=== PATIENT | female | born 1935 | race Caucasian/White ===

== ENCOUNTER 2017-08-25 09:30 | Outpatient (CLI) | payer MEDICARE | END 2017-08-25 09:31 | disposition home or self-care (01) | LOC: BICMAMMO 09:30 | PROVIDERS: ATTEND Internal Medicine Hematology & Oncology | DX: M85.80 Other specified disorders of bone density and structure, unspecified site (principal); N95.9 Unspecified menopausal and perimenopausal disorder; M81.0 Age-related osteoporosis without current pathological fracture; Z85.3 Personal history of malignant neoplasm of breast | CPT/HCPCS: 77080 ==

== ENCOUNTER 2017-12-15 10:13 | Outpatient (CLI) | payer MEDICARE | END 2017-12-15 10:14 | disposition home or self-care (01) | LOC: BICMAMMO 10:13 | PROVIDERS: ATTEND Internal Medicine Hematology & Oncology | DX: C50.919 Malignant neoplasm of unspecified site of unspecified female breast (principal); M81.8 Other osteoporosis without current pathological fracture | CPT/HCPCS: 77066; G0279 ==

== ENCOUNTER 2018-04-08 10:04 | Outpatient (CLI) | payer MEDICARE ==
--- NOTE | 2018-04-08 13:46 | CT ---
NONCONTRAST CT CERVICAL SPINE: DATE: 04/08/2018. HISTORY: Cervical radiculopathy. The patient complains of left-sided neck pain. COMPARISON: None available. FINDINGS: Multilevel degenerative change is seen in the cervical spine. No fracture or subluxation is present. There is a lucent lesion seen within the odontoid likely related to large subchondral cyst changes se condary to prominent degenerative changes at the articulation of the odontoid with the anterior arch of C1. There is loss of intervertebral disk height with disk-osteophyte complexes present at the C3-4, C4-5, C5-6, and C6-7 levels. There is moderate to severe right-sided neural foraminal narrowing at the C3-4 level primarily relate d to prominent uncinate process hypertrophy and facet hypertrophic changes. There is moderate to sev ere left and mild right-sided neural foraminal narrowing at the C4-5 level, mild bilateral neural for aminal narrowing at C5-6 and C6-7 levels related to disk-osteophyte complexes and uncinate process hy pertrophy. Facet degenerative changes are also present at these levels. Prevertebral soft tissues are within normal limits. Prominent vascular calcifications are seen in the region of the carotid artery bifurcations and proxi mal internal carotid arteries as well as in the distal vertebral arteries. There is biapical pleural and parenchymal scarring asymmetrically greater on the right with the area of scarring on the right partially calcified. There is incomplete visualization of a parenchymal irregular opacity within the left upper lobe. Thi s could also be related to chronic lung changes, but there are no prior studies available for compari son and this is also incompletely imaged. Infectious process or neoplastic process could not be enti rely excluded and CT thorax is recommended for further evaluation. IMPRESSION: 1. Biapical pleural and parenchymal scarring partially calcified and asymmetrically greater on the r ight. In addition, there is an irregular patchy and linear parenchymal opacity with surrounding grou nd-glass density in the left upper lobe incompletely imaged or evaluated. This could be related to c hronic lung changes as well, although a focal area of pneumonitis/pneumonia or a neoplastic process c annot be excluded. CT thorax is recommended for further evaluation. 2. Multilevel degenerative changes seen throughout the cervical spine. No fracture or subluxation i s seen. CODE T POS: [facility]
== END 2018-04-08 10:05 | disposition home or self-care (01) ==
LOC: TBSIIMAG 10:04
PROVIDERS: ATTEND Neurological Surgery
DX: M47.22 Other spondylosis with radiculopathy, cervical region (principal); J98.4 Other disorders of lung; R91.8 Other nonspecific abnormal finding of lung field; J94.8 Other specified pleural conditions
CPT/HCPCS: 72125

== ENCOUNTER 2019-01-09 13:27 | Outpatient (CLI) | payer MEDICARE ==
--- NOTE | 2019-01-09 14:48 | MRI ---
MRI BRAIN NONCONTRAST: Date: 01/09/19 CLINICAL INDICATION: Memory loss. FINDINGS: There is no acute territorial infarction, intracranial mass effect, or midline shift. Age-related par enchymal volume loss with compensatory dilatation of the ventricular system is present. There is mode rate chronic microvascular ischemic disease of the cerebral white matter, and there is pontine gliosi s, as well. No intracranial hemorrhagic susceptibility. Small remote lacunar infarction involves left cerebellar hemisphere. [place] right intraocular lens is absent. There is a small retention cyst in t he medial right maxillary sinus. IMPRESSION: 1. No acute territorial infarction or mass effect. 2. Moderate chronic microvascular ischemic disease and pontine gliosis. 3. Remote lacunar infarction of left cerebellar hemisphere. POS: C
== END 2019-01-09 13:28 | disposition home or self-care (01) ==
LOC: BICMRI 13:27
PROVIDERS: ATTEND Family Medicine
DX: R41.3 Other amnesia (principal); I67.82 Cerebral ischemia; G93.89 Other specified disorders of brain
CPT/HCPCS: 70551

== ENCOUNTER 2019-12-20 10:43 | Outpatient (CLI) | payer MEDICARE ==
--- NOTE | 2019-12-20 14:50 | MMO ---
Bilateral MAMMO Bilat Screen [facility]. CLINICAL HISTORY: Patient is 84 years old and is seen for screening. The patient has the following family history of breast cancer: sister, malignant (generic). The patient has a history of Excisional biopsy procedure revealed invasive ductal right breast carcinoma in December, and malignant (generic) in the right breast in December,. The patient has a history of right Lumpectomy in December, - malignant. VIEWS: The views performed were: bilateral craniocaudal with tomosynthesis and bilateral mediolateral oblique with tomosynthesis. FILMS COMPARED: The present examination has been compared to prior imaging studies performed at [facility] on 11/26/2015, 11/27/2016, 12/15/2017 and 12/16/2018. This study has been interpreted with the assistance of computer-aided detection. MAMMOGRAM FINDINGS: There are scattered fibroglandular densities. Benign calcifications are noted bilaterally. There are no suspicious masses, suspicious calcifications, or new areas of architectural distortion. IMPRESSION: THERE IS NO MAMMOGRAPHIC EVIDENCE OF MALIGNANCY. A ROUTINE FOLLOW-UP MAMMOGRAM IN 1 YEAR IS RECOMMENDED. THE RESULTS OF THIS EXAM WERE SENT TO THE PATIENT. ACR BI-RADS Category 2 - Benign finding MAMMOGRAPHY NOTE: 1. A negative mammogram report should not delay a biopsy if a dominant of clinically suspicious mass is present. 2. Approximately 10% to 15% of breast cancers are not detected by mammography. 3. Adenosis and dense breasts may obscure an underlying neoplasm. Reported by: RUSSELL CHEW MD Electonically Signed: [id number]
== END 2019-12-20 10:44 | disposition home or self-care (01) ==
LOC: BICMAMMO 10:43
PROVIDERS: ATTEND Internal Medicine Hematology & Oncology
DX: Z12.31 Encounter for screening mammogram for malignant neoplasm of breast (principal); Z80.3 Family history of malignant neoplasm of breast; Z91.89 Other specified personal risk factors, not elsewhere classified; Z98.890 Other specified postprocedural states
CPT/HCPCS: 77063; 77067

== ENCOUNTER 2020-03-24 15:57 | Inpatient (IN) | payer MEDICARE ==
[~2020-03-24 15:57] MED LIST: Iopamidol-370 76% 500 ML 1 ML ONE
[2020-03-24 17:13] LABS: #Eosinphils 0.1 thou/uL (0.0-0.7); #Lymphocytes 1.5 thou/uL (1.20-3.40); #Monocytes 0.8 thou/uL (0.11-0.59); #Neutrophils 7.4 thou/uL (1.40-6.50); %Basophils 0.3 % (0.0-1.0); %Eosinophils 0.9 % (0.0-10.0); %Lymphocytes 15.3 % (21.0-51.0); %Monocytes 7.9 % (0.0-10.0); %Neutrophils 75.6 % (42.0-75.0); Hemoglobin 13.9 g/dL (12.0-16.0); Mean Corpuscular HGB CONC 33.4 g/dL (32.0-36.0); Mean Corpuscular Hemoglobin 32.5 pg (27.0-31.0); Mean Corpuscular Volume 97.3 fL (78.0-98.0); Mean Platelet Volume 9.2 fL (7.4-10.4); Platelet Count 222 thou/uL (130-400); RBC Distribution Width 11.9 % (11.5-14.5); Red Blood Cell (RBC) Count 4.28 mill/uL (4.20-5.40); White Blood Cell (WBC) Count 9.8 thou/uL (4.8-10.8)
[2020-03-24 17:35] LABS: ALT (SGPT) 11 U/L (8-55); AST (SGOT) 18 U/L (5-34); Albumin 3.9 g/dL (3.4-4.8); Alkaline Phosphatase 52 U/L (40-110); Anion Gap 14 mmol/L (10-20); BUN (Urea Nitrogen) 30 mg/dL (9.8-20.1); Bilirubin, Total 0.5 mg/dL (0.2-1.2); Calc. Creatinine Clearance 0 mL/min (70-130); Calcium 9.1 mg/dL (7.8-10.44); Carbon Dioxide 24 mmol/L (23-31); Chloride 104 mmol/L (98-107); Estimated GFR-MDRD 47; Globulin 2.8 g/dL (2.4-3.5); Glucose 120 mg/dL (83-110); Lipase 27 U/L (8-78); Potassium 4.2 mmol/L (3.5-5.1); Protein, Total 6.7 g/dL (6.0-8.3); Sodium 138 mmol/L (136-145)
[2020-03-24] MEDS ORDERED: Morphine 4 MG/ML VIAL ONE (17:36)
[2020-03-24] MEDS ORDERED: Ondansetron PF 4 MG/2 ML Vial ONE (17:36)
--- NOTE | 2020-03-24 18:32 | CT ---
CT Abdomen Pelvis W Con History: Abdominal pain with nausea and vomiting Comparison: None. Findings: Lung bases are clear. No pericardial effusion. Dense mitral annular calcifications. Small h iatal hernia. Large abdominal aortic aneurysm which is bilobed and partially thrombosed. The aneurysm measures up t o 3.6 cm with a craniocaudal length of 8 cm. There is a narrow patent lumen between the two aneurysms which measures 9 mm. Aneurysm originates just below the renal arteries. There are dilated l oops of distal jejunum and proximal ileum which measures up to 3.5 cm. The distal ileum and terminal ileum is not dilated. There is a transition point of dilated ileum to normal ilium of the ri ght lower quadrant of the abdomen axial image 57 adjacent to a loculated peritoneal fluid collection which measures up to 10 cm in size. There is either a separate left peritoneal fluid colle ction measuring up to 8.8 cm in size versus continuations collection posteriorly, although the streak artifact from right hip arthroplasty does limit this evaluation. These collections appears sep arate from the urinary bladder. The liver, gallbladder, spleen are unremarkable as well as the adrenal glands. Multiple hypodensities of both kidneys likely cysts. No hydronephrosis. No acute osseous abnormality. No suspicious osteolytic or osteoblastic lesions. Mild pancreatic atrophy with dilatation of the main pancreatic duct. Liver is unremarkable. Impression: 1. Mildly dilated loops of small bowel involving the distal jejunum and proximal ileum to the right l ower quadrant of the abdomen adjacent to a large was felt to be peritoneal inclusion cyst which creates mass effect upon the nondilated bowel. Small bowel follow-through may be beneficial. 2. Bilobed aortic aneurysm with what appeared to be two separate aneurysms with a small connection be tween the two. This connection is a narrow lumen of 9 mm for which both in combination have a length of 8.5 cm and a width measuring up to 3.6 cm. Evaluation for aneurysm repair is recommended. 3. Likely large bilateral peritoneal inclusion cysts for which nonemergent pelvic ultrasound can be p erformed.
[2020-03-24 20:18] LABS: Bacteria/HPF None Seen HPF (None Seen); Bilirubin Negative (Negative); Blood, Urine Trace (Negative); Clarity Clear (Clear); Glucose, Urine (Dipstick) Normal (Negative); Ketone, Urine Negative (Negative); Leukocyte Negative Leu/uL (Negative); Nitrite Negative (Negative); Protein, Urine (Dipstick) Negative (Neg-Trace); Squamous Epithelial 0-3 HPF (0-3); Urobilinogen Normal mg/dL (Less than 2); pH, Urine 6.5 (5.0-9.0)
[2020-03-24] MEDS ORDERED: hydrALAZINE 20 MG/ML VIAL ONE (20:22)
[2020-03-24] MEDS ORDERED: Benzocaine 20% Spray 60 ML CAN ONE (20:34)
[2020-03-24] MEDS ORDERED: Oxymetazoline HCl 0.05% (30 ML BOT) ONE (20:34)
[2020-03-24] MEDS ORDERED: Ondansetron PF 4 MG/2 ML Vial IVP PRN (22:03)
[2020-03-24] MEDS ORDERED: Morphine 2 MG/ML VIAL SLOW IVP PRN (22:05)
[2020-03-24] MEDS ORDERED: Metoprolol Tartrate 5 MG/5 ML VIAL IVP PRN (22:06)
[2020-03-24] MEDS ORDERED: diphenhydrAMINE 25 MG CAP PO PRN (22:07)
[2020-03-24] MEDS: Dextrose 5 % And 0.9 % NaCl 1,000 ML IV SCH (22:35)
--- NOTE | 2020-03-24 22:39 | HP ---
REASON FOR ADMISSION: Abdominal pain. HISTORY OF PRESENT ILLNESS: This is an 85-year-old female patient, presenting to the ER for vomiting and abdominal pain, this has been going back to approximately 20 hours before her presentation. Around midnight, she developed a watery diarrhea, last episode of diarrhea was 9 a.m. this morning. With diarrhea, she had nausea and vomiting. She denies fevers. Denies chills. She does report abdominal pain that is mild in intensity, cramping in nature, involving the whole abdomen, but mainly localized in the left part and left lower quadrant area. Since the morning, she has not moved her bowels, and she is not passing gas. The patient has dementia, lives with her son. At the bedside, she does have her daughter who was providing with most of the information. PAST MEDICAL HISTORY: 1. Dementia. 2. Breast cancer, status post lumpectomy, on tamoxifen. 3. Coronary artery disease, status post CABG. 4. Colon resection. 5. High blood pressure. 6. High cholesterol. 7. Partial hysterectomy. SOCIAL HISTORY: She does not smoke. Does not drink alcohol. FAMILY HISTORY: Negative for premature coronary artery disease. ALLERGY: She does have sensitivity to a certain statin. Daughter does not remember the name. PHYSICAL EXAMINATION: GENERAL: She is awake, but confused. Does not appear in distress. VITAL SIGNS: Her blood pressure is 177/81, heart rate of 88, temperature is 98.6, and saturating 96% on room air. HEENT: Head is nontraumatic, normocephalic. Pupils equal, reactive. Extraocular movements are intact. Nonicteric sclerae. Well injected conjunctivae. Oral mucosa normal. Nasal mucosa normal. NECK: Supple. No adenopathy. No murmur. Thyroid is not palpable. Trachea is midline. No supraclavicular lymphadenopathy. CARDIOVASCULAR: S1, S2 regular. Loud systolic murmur is heard. No displacement of PMI. LUNGS: Fine inspiratory crackles bilaterally. Bowel sounds were increased and hyperactive. ABDOMEN: Soft, but slightly tender on palpation of the left lower quadrant area. EXTREMITIES: No lower extremity edema. No cyanosis. NEUROLOGIC: Cranial nerves 2 through 12 within normal limits. Normal motor function and sensory function. No reflexes. LABORATORY DATA: Blood work shows WBC 9.8, hemoglobin of 13.9, and platelets of 222. Sodium 138, potassium 4.2, bicarb of 24, creatinine of 1.1, and BUN of 30. Urinalysis shows 4 to 6 wbc's and 4 to 6 rbc's, negative nitrites, negative leukocyte esterase. CT of the abdomen and pelvis shows mildly dilated loops of small bowel involving the distal jejunum and proximal ileum to the right lower quadrant of the abdomen, adjacent to a large peritoneal inclusion cyst, which creates mass effect up on the nondilated bowel. Small bowel follow-through may be beneficial. Bilobed aortic aneurysm which what appeared to be 2 separate aneurysms with a small connection between the 2. This connection is a narrow lumen of 9 mm for which both of combination have a length of 8.5 cm and width of 3.6 cm. Evaluation for aneurysm repair was recommended. Likely, a large bilateral peritoneal inclusion cyst for which nonemergent pelvic ultrasound can be performed. ASSESSMENT AND PLAN: This is an 85-year-old female patient who is presenting with abdominal pain, vomiting, and diarrhea. CT scan, possible bowel obstruction and multiple intraabdominal finding also incidentally an aortic aneurysm. GI: The patient will be kept n.p.o. We will provide her with pain control, provide her with IV fluids. I will place a consultation for General Surgery to give us their input. The patient would be on aspiration precautions. For her high blood pressure, we will provide the blood pressure control. For DVT prophylaxis, should be on Lovenox subcutaneously. For her aortic aneurysm., the ER doctor did contact Dr. Gonzalez of Vascular Surgery recommendation as an outpatient followup. No need for urgent or emergent intervention. Her daughter requested for me to give her something for her to sleep and calm her down. We will have IV Benadryl on as needed basis for insomnia. The patient is a do not resuscitate as per her daughter, who is the [id number] attorney recruiter. Job ID: [id number]
[2020-03-25 05:47] LABS: #Eosinphils 0.1 thou/uL (0.0-0.7); #Lymphocytes 1.6 thou/uL (1.20-3.40); #Monocytes 0.9 thou/uL (0.11-0.59); %Basophils 0.6 % (0.0-1.0); %Eosinophils 1.6 % (0.0-10.0); %Lymphocytes 21.3 % (21.0-51.0); %Monocytes 11.8 % (0.0-10.0); %Neutrophils 64.8 % (42.0-75.0); Hemoglobin 12.6 g/dL (12.0-16.0); Mean Corpuscular HGB CONC 33.4 g/dL (32.0-36.0); Mean Corpuscular Hemoglobin 32.4 pg (27.0-31.0); Mean Corpuscular Volume 97.3 fL (78.0-98.0); Mean Platelet Volume 9.7 fL (7.4-10.4); Platelet Count 205 thou/uL (130-400); RBC Distribution Width 11.9 % (11.5-14.5); Red Blood Cell (RBC) Count 3.89 mill/uL (4.20-5.40); White Blood Cell (WBC) Count 7.7 thou/uL (4.8-10.8)
[2020-03-25 06:08] LABS: Anion Gap 13 mmol/L (10-20); BUN (Urea Nitrogen) 24 mg/dL (9.8-20.1); Calc. Creatinine Clearance 0 mL/min (70-130); Calcium 8.2 mg/dL (7.8-10.44); Carbon Dioxide 22 mmol/L (23-31); Chloride 108 mmol/L (98-107); Estimated GFR-MDRD 47; Glucose 123 mg/dL (83-110); Sodium 139 mmol/L (136-145)
[2020-03-25] MEDS: Enoxaparin Sodium 40 MG/0.4 ML SYRINGE SC SCH (08:02)
[2020-03-25] MEDS ORDERED: MD-Gastroview 120 ML BOT ONE (10:50)
--- NOTE | 2020-03-25 12:30 | RAD ---
XR Small Bowel STANDARD History: Abdominal pain Comparison: CT examination prior day Findings: Gastrografin contrast was given to the patient. Contrast transits through the the stomach i nto the small bowel with entrance into the ascending and transverse colon within 1.5 hours. Impression: No high-grade small bowel obstruction.
[2020-03-25] MEDS: Dextrose 5 % And 0.9 % NaCl 1,000 ML IV SCH (12:53)
[2020-03-25 12:59] VITALS: BMI 20.8
--- NOTE | 2020-03-25 15:17 | PDOC.HOSPP ---
- Subjective Encounter Date: 03/25/20 Encounter Time: 15:15 Subjective: f/u for abd pain/N/V with initial concern for possible SBO by CT imaging but SBFT negative this am. - Objective Vital Signs & Weight: Vital Signs (12 hours) Temp Pulse Resp BP Pulse Ox 03/25/20 08:00 95 03/25/20 07:11 98.8 F 74 18 136/70 95 03/25/20 04:25 98.7 F 76 18 147/71 H 93 L Weight Weight 129 lb 4.8 oz Result Diagrams: 03/25/20 05:10 03/25/20 05:10 Radiology Reviewed by me: Yes (SBFT - no obstruction) Hospitalist ROS - Medication Medications: Active Medications Generic Name Dose Route Start Last Admin Trade Name Freq PRN Reason Stop Dose Admin Enoxaparin Sodium 40 mg 03/25/20 09:00 03/25/20 08:02 Enoxaparin Sodium 40 Mg/0.4 Ml Syringe SC Not Given 0900 GABRIELE Dextrose/Sodium Chloride 1,000 mls @ 75 mls/hr 03/24/20 22:15 03/25/20 12:53 D5 0.9% Ns IV 1,000 mls .[id number] GABRIELE Administration Ondansetron HCl 4 mg 03/24/20 22:03 03/25/20 09:30 Ondansetron Pf 4 Mg/2 Ml Vial IVP 4 mg Q6H PRN Administration Nausea/Vomiting - Exam General Appearance: NAD, awake alert Eye: PERRL, anicteric sclera ENT: normocephalic atraumatic, no oropharyngeal lesions Neck: supple, symmetric, no JVD, no thyromegaly, no lymphadenopathy Heart: RRR, no gallops, no rubs, normal peripheral pulses Heart - other findings: S1, S2 Respiratory: CTAB, no wheezes, no rales, no ronchi, normal chest expansion Gastrointestinal: soft, non-tender, non-distended, normal bowel sounds, no palpable masses Extremities: no cyanosis, no clubbing, no edema Skin: normal turgor, no lesions Neurological: cranial nerve grossly intact, no new deficit Musculoskeletal: normal tone, normal strength Psychiatric: normal affect, A&O x 3 Hosp A/P (1) Abdominal pain Code(s): R10.9 - UNSPECIFIED ABDOMINAL PAIN Status: Acute Plan: Likely viral gastroenteritis, supportive mgmt (2) Nausea & vomiting Code(s): R11.2 - NAUSEA WITH VOMITING, UNSPECIFIED Status: Acute Plan: Resolved, advance diet as tolerated, PRN Zofran (3) CKD (chronic kidney disease), stage III Code(s): N18.3 - CHRONIC KIDNEY DISEASE, STAGE 3 (MODERATE) Status: Chronic Plan: Avoid nephrotoxic meds and limit contrast exposure (4) HTN (hypertension) Code(s): I10 - ESSENTIAL (PRIMARY) HYPERTENSION Status: Chronic Qualifiers: Hypertension type: essential hypertension Qualified Code(s): I10 - Essential (primary) hypertension (5) Dementia Code(s): F03.90 - UNSPECIFIED DEMENTIA WITHOUT BEHAVIORAL DISTURBANCE Status: Chronic Plan: Mild, supportive mgmt with family at bedside - Plan plan discussed w/ family, social media content manager, out of bed/ambulate, DVT proph w/SCDs Stable overall Continue low-volume IVF's OOB/ambulate ADAT Likely home in am
--- NOTE | 2020-03-25 16:45 | PDOC.FMACP ---
Advance Care Planning - Problem (1) CKD (chronic kidney disease), stage III Status: Chronic Code(s): N18.3 - CHRONIC KIDNEY DISEASE, STAGE 3 (MODERATE) (2) Abdominal pain Status: Acute Code(s): R10.9 - UNSPECIFIED ABDOMINAL PAIN (3) HTN (hypertension) Status: Chronic Code(s): I10 - ESSENTIAL (PRIMARY) HYPERTENSION Qualifiers: Hypertension type: essential hypertension Qualified Code(s): I10 - Essential (primary) hypertension - Note Participants: patient, family, palliative care Summary: Palliative Care introduced Advanced Care Planning, opportunity to decline. The diagnosis, prognosis and goals of care were discussed. Appropriate forms and documentation to accomplish the goals of care were discussed. All questions were answered. Elected to complete MPOA and Directive to physician. Original and copy given to patient, copies placed on chart for medical records. Time Spent (mins): 20
--- NOTE | 2020-03-25 21:08 | CON ---
DATE OF CONSULTATION: 03/25/2020 HISTORY OF PRESENT ILLNESS: Ms. Hall is an 85-year-old woman, who was admitted yesterday with insidious onset, mild generalized abdominal pain associated with multiple episodes of nausea and nonbilious emesis as well as diarrhea. The patient was evaluated in the emergency department with a CT scan of the abdomen and pelvis, which was suggestive of partial small bowel obstruction. I have been asked to evaluate the patient to provide surgical input. At the time of my evaluation, the patient is awake and alert. Her adult daughter is at bedside. She reports no abdominal pain. She has had no nausea or vomiting since admission. She is passing flatus. The patient gives a history of recurrent episode of nausea, emesis, and diarrhea, which usually resolves spontaneously. Last episode was several months ago. PAST MEDICAL HISTORY: Pertinent for essential hypertension, coronary artery disease, breast carcinoma, and senile dementia of Alzheimer's type. PAST SURGICAL HISTORY: Pertinent for partial hysterectomy, left breast lumpectomy with radiation therapy and tamoxifen. Other pertinent surgical history includes partial colectomy with primary anastomosis. 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 She lives independently. She has a son and a daughter, who provides care occasionally. She denies any cigarette smoking, ethanol, or illicit drug abuse. FAMILY HISTORY: Noncontributory for this patient's age. PREHOSPITALIZATION MEDICATIONS: Include; 1. Lisinopril 20 mg p.o. daily. 2. Atenolol 12.5 mg p.o. daily. 3. Aspirin 81 mg p.o. daily. 4. Tramadol 50 mg p.o. q.8 hours p.r.n. 5. Zetia 10 mg p.o. at bedtime. 6. Albuterol inhaler used one puff q.4 hours p.r.n. ALLERGIES: TO ATORVASTATIN. REVIEW OF SYSTEMS: Ten-point review of system is essentially unremarkable except as stated in past medical history and chief complaint. PHYSICAL EXAMINATION: GENERAL: This reveals an 85-year-old normally-developed woman, who is otherwise coherent and interactive and appears stated age. The patient is alert and oriented x3. She appears to be in no acute distress at the time of my evaluation. VITAL SIGNS: Include blood pressure 136/70, pulse 74, respiratory rate is 18, temperature 98.8 degrees Fahrenheit, and oxygen saturation is 95% on room air. HEENT: Pupils are equal, round, and reactive to light and accommodation. NECK: She has no jugular venous distention noted. HEART: Reveals regular rate and rhythm. No murmurs or gallops auscultated. LUNGS: Clear to auscultation bilaterally. Her breathing is regular and unlabored. ABDOMEN: Soft, nontender, and nondistended. Liver and spleen nonpalpable below costal margin. NEUROLOGIC: Reveals no focal deficits present. LABORATORY FINDINGS: Today include a CBC with 7700 white blood cells, hemoglobin and hematocrit are 12.6 and 37.8 respectively, and platelet count is 205,000. Metabolic profile; sodium 139, potassium 4.0, chloride is 108, bicarb is 22, BUN 24, creatinine is 1.09, and glucose 123. I have personally reviewed her CT scan of the abdomen and pelvis, which was obtained yesterday, which reveals multiple distended loops of small bowel. No transition zone. There is air and gas also in the colon and rectum. IMPRESSION: Acute partial small bowel obstruction, resolved. PLAN: No acute surgical indication for this patient at this time. We will therefore initiate diet and if the patient tolerates, she may be discharged home at the discretion of the Primary Service within next 24 hours. Above findings and recommendations have been discussed with the patient and her daughter at bedside. They both indicated understanding of information provided. I have answered their questions. Job ID: [id number] MTDD
[2020-03-26] MEDS: Dextrose 5 % And 0.9 % NaCl 1,000 ML IV SCH (00:16)
[2020-03-26 05:33] LABS: #Eosinphils 0.3 thou/uL (0.0-0.7); #Lymphocytes 1.7 thou/uL (1.20-3.40); #Monocytes 0.6 thou/uL (0.11-0.59); #Neutrophils 3.8 thou/uL (1.40-6.50); %Basophils 0.3 % (0.0-1.0); %Eosinophils 4.5 % (0.0-10.0); %Lymphocytes 26.6 % (21.0-51.0); %Monocytes 9.2 % (0.0-10.0); %Neutrophils 59.4 % (42.0-75.0); Mean Corpuscular HGB CONC 33.4 g/dL (32.0-36.0); Mean Corpuscular Hemoglobin 32.7 pg (27.0-31.0); Mean Corpuscular Volume 98.2 fL (78.0-98.0); Mean Platelet Volume 9.6 fL (7.4-10.4); Platelet Count 168 thou/uL (130-400); RBC Distribution Width 11.9 % (11.5-14.5); Red Blood Cell (RBC) Count 3.36 mill/uL (4.20-5.40); White Blood Cell (WBC) Count 6.5 thou/uL (4.8-10.8)
[2020-03-26 06:08] LABS: Anion Gap 10 mmol/L (10-20); BUN (Urea Nitrogen) 18 mg/dL (9.8-20.1); Calc. Creatinine Clearance 40 mL/min (70-130); Calcium 7.7 mg/dL (7.8-10.44); Carbon Dioxide 22 mmol/L (23-31); Chloride 111 mmol/L (98-107); Estimated GFR-MDRD 58; Glucose 99 mg/dL (83-110); Magnesium 1.9 mg/dL (1.6-2.6); Potassium 3.3 mmol/L (3.5-5.1); Sodium 140 mmol/L (136-145)
[2020-03-26] MEDS ORDERED: Lisinopril 20 MG TAB PO SCH (09:00)
[2020-03-26] MEDS ORDERED: Aspirin 81 mg Enteric Coated Tablet PO SCH (09:00)
[2020-03-26] MEDS ORDERED: Multivit, Therapeutic 1 TAB PO SCH (09:00)
[2020-03-26] MEDS ORDERED: Atenolol 25 MG TAB PO SCH (09:00)
[2020-03-26] MEDS ORDERED: Calcium Carbonate 600 MG TAB PO SCH (09:00)
[2020-03-26] MEDS: Enoxaparin Sodium 40 MG/0.4 ML SYRINGE SC SCH (09:21)
[2020-03-26] MEDS ORDERED: Loperamide HCl 2 MG CAP PO SCH (10:45)
[2020-03-26] MEDS ORDERED: Potassium Chloride 20 MEQ TAB PO SCH (10:45)
[2020-03-26 15:52] VITALS: BP 157/71; TEMP 98.4
--- NOTE | 2020-03-27 03:42 | DIS ---
DATE OF ADMISSION: 03/24/2020 DATE OF DISCHARGE: 03/26/2020 DISCHARGE DIAGNOSES: 1. Abdominal pain, likely due to mild partial small bowel obstruction, spontaneously resolving. 2. Viral gastroenteritis, improved. 3. Nausea and vomiting, resolved. 4. Chronic kidney disease stage 3. 5. Hypertension, stable. 6. Deconditioning. CONSULTATIONS: Dr. Caldwell with General Surgery Service. PERTINENT LABORATORY AND X-RAY FINDINGS: Potassium ranged between 3.3 to 4.2. Creatinine ranged between 0.92 to 1.10. Lactic acid level 1.6. CBC showed a white blood cell count ranging between 6.5 to 9.8, hemoglobin ranged between 11.[address] of the abdomen and pelvis dated 03/24/2020, showed mild dilation of small bowel loops at the distal jejunum and proximal ileum. Bilobed aortic aneurysm noted. Bilateral peritoneal inclusion cysts. Small bowel follow-through dated 03/25/2020, showed no evidence of high-grade bowel obstruction. HOSPITAL COURSE: The patient was admitted to the medical floor after initially presenting with increased abdominal pain with associated nausea and vomiting with diarrhea. The patient underwent general evaluation including CT imaging of the abdomen and pelvis showing evidence of mild small bowel obstruction. The patient received general supportive management including IV fluids and was evaluated by the General Surgery Service. No specific indication for acute surgical intervention recommended with conservative management. The patient underwent small bowel follow-through within 24 hours after admission showing no evidence of high-grade obstruction. The patient was incidentally noted with an abdominal aortic aneurysm without specific recommendations for intervention. The patient received general supportive management with slow advancement of clear liquids to regular diet, tolerating without complication. I have examined the patient at the time of discharge and discussed followup instructions. The patient verbalized understanding and agreement, ready for discharge on 03/26/2020. DISCHARGE MEDICATIONS: 1. Atenolol 12.5 mg p.o. daily. 2. Calcium carbonate 600 mg p.o. daily. 3. Enteric-coated aspirin 81 mg p.o. daily. 4. Glucosamine 1 tablet p.o. daily. 5. Lisinopril 20 mg p.o. daily. 6. Memantine 5 mg p.o. b.i.d. 7. Multivitamin 1 capsule p.o. daily. 8. ProAir HFA one puff inhaled q.4 hours p.r.n. 9. Tramadol 50 mg p.o. q.8 hours p.r.n. pain. 10. Zetia 10 mg p.o. at bedtime. FOLLOWUP: The patient may follow up with Dr. Omer Nick within 7 days of discharge. The patient may follow up with Dr. Caldwell with General Surgery Service and call his office for appointment time and date. CONDITION ON DISCHARGE: Stable. ACTIVITY: Ad-harsh. DIET: Regular. SPECIAL INSTRUCTIONS: The patient to receive home health services with [facility] after discharge. CODE STATUS: Do not attempt resuscitation. DISPOSITION: To home with [facility], 03/26/2020. TIME SPENT: Total time preparing and coordinating discharge, 32 minutes. Job ID: [id number]
--- NOTE | 2020-03-28 00:47 | PQF ---
CLINICAL DOCUMENTATION CLARIFICATION FORM: Dear : Esteban Beebe Date / Time: 03/28/20 0047 Please exercise your independent, professional judgment in responding to the clarification form. Clinical indicators are provided on the bottom of this form for your review Please check appropriate box(es): [ ] Protein Calorie Malnutrition: [ ] Mild [ ] Moderate [ ] Severe [ ] Other Malnutrition (please specify) [ x ] Underweight without malnutrition [ ] Cachexia [ ] Other diagnosis [ ] Unable to determine In addition, please specify: Present on Admission (POA): [ x ] Yes [ ] No [ ] Unable to determine Physician Signature: Date/Time: For continuity of documentation, please document condition throughout progress notes and discharge summary. Thank You. To be completed by CDI/Coding staff for physician review: Present Clinical Indicators - Signs / Symptoms / Labs Results and Location in Medical Record [X] BP 149/68, Pulse 68, Resp 18, Temp 99.2 Vital signs 03/24 [X] Serum Total Protein 6.7, Albumin 3.9, Globulin 2.8, Ratio 1.4 Laboratory 03/24 [X] BMI 20 Nutritional assessment Dietitian Nadira 03/25 [X] Weight loss Nutritional assessment Dietitian Waddell 03/25 [X] Poor appetite Nutritional assessment Dietitian Waddell 03/25 [X] noted severe interosseous and moderate temporalis muscle and moderate buccal fat pad wasting Nutritional assessment Dietitian Waddell 03/25 Present Risk Factors Results and Location in Medical Record [X] 85 year-old Nutritional assessment Dietitian Nadira 03/25 [X] Dementia Nutritional assessment Dietitian Nadira 03/25 [X] Hx of breast cancer Nutritional assessment Dietitian Nadira 03/25 [X] SBO Nutritional assessment Dietitian Nadira 03/25 [X] Viral Gastroenteritis Nutritional assessment Dietitian Nadira 03/25 [X] IVANA vs CKD Nutritional assessment Dietitian Waddell 03/25 Present Treatments Results and Location in Medical Record [X] Dietary consult Nutritional assessment Dietitian Nadira 03/25 [X] Nutritional supplements Nutritional assessment Dietitian Nadira 03/25 [X] Weight monitoring Nutritional assessment Dietitian Nadira 03/25 [X] Oral intake monitoring Nutritional assessment Dietitian Nadira 03/25 [X] Appetite stimulant - medication Nutritional assessment Dietitian Nadira 03/25 CDS/Dental Billing Specialist Signature: Adina Del Angel Phone #: [phone] Date/Time: 03/28/2020 0047 Moderate Malnutrition (in acute illness) ? Energy Intake: <75% of estimated energy requirement for > 7 days ? Weight Loss: 1-2%/1 week; 5%/ 1 month; 7.5%/3 months ? Other: mild body fat loss; mild muscle mass loss; mild fluid accumulation; Severe Malnutrition (in acute illness) ? Energy Intake: ? 50% of estimated energy requirement for ? 5 days ? Weight Loss: >2%/1 week; >5%/1 month; >7.5%/3 months ? Other: moderate body fat loss; moderate muscle mass loss; moderate- severe fluid accumulation; measurably reduced child protective services social worker strength Moderate Malnutrition (in chronic illness) ? Energy Intake: <75% of estimated energy requirement for ?1 month ? Weight Loss: 5%/1 month; 7.5%/3 months; 10%/6 months; 20%/1 year ? Other: mild body fat loss; mild muscle mass loss; mild fluid accumulation Severe Malnutrition (in chronic illness) ? Energy Intake: ?75% of estimated energy requirement for ?1 month ? Weight Loss: >5%/1 month; >7.5%/3 months; >10%/6 months; >20%/1 year ? Other: severe body fat loss; severe muscle mass loss; severe fluid accumulation; measurably reduced child protective services social worker strength This is a permanent part of the Medical Record [facility]
--- NOTE | 2020-03-28 06:16 | PQF ---
CLINICAL DOCUMENTATION CLARIFICATION FORM: Dear : Esteban Beebe Date / Time: 03/28/20 0615 Please exercise your independent, professional judgment in responding to the clarification form. Clinical indicators are provided on the bottom of this form for your review In your clinical opinion based on clinical finding below, can you please identify the etiology of SBO if due to: Please check appropriate box(es): [ x ] Viral gastroenteritis [ ] Abdominal Aortic Aneurysm [ ] Other diagnosis [ ] Unable to determine Physician Signature: Date/Time: For continuity of documentation, please document condition throughout progress notes and discharge summary. Thank You. To be completed by CDI/Coding staff for physician review: Present Clinical Indicators - Signs / Symptoms / Labs Results and Location in Medical Record [X] BP 149/68, Pulse 68, Resp 18, Temp 99.2 Vital signs 03/24 [X] CT Abdomen Impression: Mildly loops of small bowel involving jejunum and proximal ileum. Bilobed aortic aneurysm Imaging Dr Brandon 03/24 [X] Presented with Abdominal pain that is mild intensity, cramping in nature H&P p1 03/24 Dr Lowry [X] Abdominal pain likely due to mild partial small bowel obstruction, Viral gastroenteritis, improved DS p1 03/26 Dr Beebe Present Risk Factors Results and Location in Medical Record [X] 85 year-old Female H&P p1 03/24 Dr Lowry [X] Dementia H&P p1 03/24 Dr Lowry [X] Hx of Breast cancer H&P p1 03/24 Dr Lowry [X] Hx of colon resection H&P p1 03/24 Dr Lowry Present Treatments Results and Location in Medical Record [X] Imodium 2mg oral MAR 03/26 [X] IV Morphine 4 mg MAR 03/24 [X] IV Zofran 4 mg SEP 10 [X] CT Abdomen Imaging Dr Brandon 03/24 [X] Small Bowl X-ray Imaging Dr Brandon 03/25 [X] GS consult Consult Ernesto Chadwick 03/25 CDS/Global Expansion Sales Director Signature: Adina Scruggs [employer] Phone #: ext [phone] Date/Time: 03/28/202015 This is a permanent part of the Medical Record [facility]
== END 2020-03-26 17:03 | disposition home health service (06) | DRG 392 ==
LOC: ERS 15:57 → T4-B 19:41
PROVIDERS: ADMIT Internal Medicine; ATTEND Internal Medicine
DX: A08.4 Viral intestinal infection, unspecified (principal); Z66 Do not resuscitate; N18.3 Chronic kidney disease, stage 3 (moderate); I12.9 Hypertensive chronic kidney disease with stage 1 through stage 4 chronic kidney disease, or unspecified chronic kidney disease; I71.4 Abdominal aortic aneurysm, without rupture; E78.5 Hyperlipidemia, unspecified; I25.10 Atherosclerotic heart disease of native coronary artery without angina pectoris; E78.00 Pure hypercholesterolemia, unspecified; G30.9 Alzheimer's disease, unspecified; F02.80 Dementia in other diseases classified elsewhere, unspecified severity, without behavioral disturbance, psychotic disturbance, mood disturbance, and anxiety; K66.8 Other specified disorders of peritoneum; R63.6 Underweight; Z68.20 Body mass index [BMI] 20.0-20.9, adult; Z90.711 Acquired absence of uterus with remaining cervical stump; Z85.3 Personal history of malignant neoplasm of breast; Z79.810 Long term (current) use of selective estrogen receptor modulators (SERMs); Z95.1 Presence of aortocoronary bypass graft; Z90.49 Acquired absence of other specified parts of digestive tract; Z79.899 Other long term (current) drug therapy; Z79.82 Long term (current) use of aspirin; Z88.8 Allergy status to other drugs, medicaments and biological substances
CPT/HCPCS: 36415; 74177; 74250; 80048; 80053; 81003; 81015; 83605; 83690; 83735; 84484; 85025; 93005; 96361; 96374; 96375; J0360; J2270; J2405; Q9963; Q9967

== ENCOUNTER 2021-06-23 12:12 | Outpatient (CLI) | payer MEDICARE | END 2021-06-23 12:13 | disposition home or self-care (01) | LOC: BICMAMMO 12:12 | PROVIDERS: ATTEND Internal Medicine Hematology & Oncology | DX: Z12.31 Encounter for screening mammogram for malignant neoplasm of breast (principal); Z80.3 Family history of malignant neoplasm of breast; Z85.3 Personal history of malignant neoplasm of breast; Z98.890 Other specified postprocedural states | CPT/HCPCS: 77063; 77067 ==

== ENCOUNTER 2022-01-03 16:12 | Emergency (ER) | payer MEDICARE ==
[2022-01-03] MEDS ORDERED: Morphine 4 MG/ML VIAL ONE ×2 (16:17→18:28)
[2022-01-03] MEDS ORDERED: Ondansetron PF 4 MG/2 ML Vial ONE (16:17)
[2022-01-03 16:34] LABS: #Eosinphils 0.2 thou/uL (0.0-0.7); #Lymphocytes 1.2 thou/uL (1.20-3.40); #Monocytes 0.7 thou/uL (0.11-0.59); %Basophils 0.3 % (0.0-1.0); %Eosinophils 1.4 % (0.0-10.0); %Lymphocytes 10.8 % (21.0-51.0); %Monocytes 6.5 % (0.0-10.0); %Neutrophils 80.9 % (42.0-75.0); Hemoglobin 13.2 g/dL (12.0-16.0); Mean Corpuscular HGB CONC 34.5 g/dL (32.0-36.0); Mean Corpuscular Hemoglobin 34.2 pg (27.0-31.0); Mean Corpuscular Volume 99.3 fL (78.0-98.0); Mean Platelet Volume 8.8 fL (7.4-10.4); Platelet Count 160 thou/uL (130-400); RBC Distribution Width 11.7 % (11.5-14.5); Red Blood Cell (RBC) Count 3.85 mill/uL (4.20-5.40); White Blood Cell (WBC) Count 11.1 thou/uL (4.8-10.8)
[2022-01-03 16:55] LABS: ALT (SGPT) 13 U/L (8-55); AST (SGOT) 25 U/L (5-34); Albumin 3.9 g/dL (3.4-4.8); Alkaline Phosphatase 60 U/L (40-110); Anion Gap 16 mmol/L (10-20); BUN (Urea Nitrogen) 25 mg/dL (9.8-20.1); Bilirubin, Total 1.5 mg/dL (0.2-1.2); Calc. Creatinine Clearance 0 mL/min (70-130); Carbon Dioxide 25 mmol/L (23-31); Chloride 102 mmol/L (98-107); Estimated GFR 30; Glucose 109 mg/dL (83-110); Potassium 4.2 mmol/L (3.5-5.1); Protein, Total 6.9 g/dL (5.8-8.1); Sodium 139 mmol/L (136-145)
== END 2022-01-03 22:10 ==
LOC: ERS 16:12
DX: S32.591A Other specified fracture of right pubis, initial encounter for closed fracture (principal); I10 Essential (primary) hypertension; W19.XXXA Unspecified fall, initial encounter
CPT/HCPCS: 36415; 71045; 72170; 80053; 85025; 96374; 96376; J2270; J2405